=== PATIENT | male | born 1970 | race Caucasian/White ===

== ENCOUNTER 2023-10-31 08:53 | Outpatient (AMB) | payer OTHER, SELFPAY ==
--- NOTE | 2023-10-31 08:37 | AM.OFFWIN_ITS ---
Intake Vital Signs 10/31/23 08:55 Height 5 ft 10 in Weight 132 lb BMI 18.9 BP 110/76 Blood Pressure Location Lt brachial Position Sitting Pulse 112 H Pulse Source Pulse Oximeter Temp 97.8 F Temp Source Temporal Artery Scan Pulse Oximetry (%) 97 Oxygen Delivery Method Room Air Intake Visit Reasons: [employer] 2 month of random Vomit Intake Note: pt is here today for random vomiting started 2 months ago Patient Tobacco Use Status: Current everyday Tobacco user Allergies acetaminophen [From Percocet] Allergy (Mild, Verified 10/31/23 08:59) sick codeine Allergy (Mild, Verified 10/31/23 08:59) Vomiting oxycodone [From Percocet] Allergy (Mild, Verified 10/31/23 08:59) sick Do you need a note to return to daycare/school/sports/work: Yes HPI HPI Comments History of Present Illness Details 53 y/o male patient presents to walk in clinic with c/o diarrhea, Nausea, vomiting and gastritis for more than 6 months. Pt does not have a PCP at this time. Reports vomiting and diarrhea on/off for awhile. PFSH Social History Patient Tobacco Use Status: Current everyday Tobacco user Review of Systems Const All systems reviewed & are unremarkable except as noted in HPI and below Physical Exam Vital Signs: Last Vital Signs Temp 97.8 F 10/31/23 08:55 Pulse 112 H 10/31/23 08:55 BP 110/76 10/31/23 08:55 Pulse Ox 97 10/31/23 08:55 Oxygen Delivery Method Room Air 10/31/23 08:55 BMI result Body Mass Index 18.9 Const General: no acute distress Nutritional Appearance: underweight Orientation/consciousness: patient oriented x3 GI Inspection: Yes normal to inspection and No distended Palpation (GI): Soft to palpation and No hepatosplenomegaly present Auscultation: normal bowel sounds Neuro General: patient oriented x3, gait normal and moves all extremities Psych Speech and movement: Normal speech and movement present Assessment & Plan Assessment & Plan (1) Gastritis: Code(s): K29.70 - Gastritis, unspecified, without bleeding Qualifiers: Chronicity: acute Gastritis bleeding: without bleeding Gastritis type: other gastritis Qualified Code(s): K29.00 - Acute gastritis without bleeding Plan: - Pt to establish care with a new PCP - He might need GI referral - Possibly Stress related Medications: New metoclopramide HCl (Reglan) 10 mg PO Q6H PRN 60 tabs 2RF nausea and vomiting K29.00 - Acute gastritis without bleeding omeprazole 40 mg PO DAILY 30 caps 2RF K29.00 - Acute gastritis without bleeding Coding Level of Care Code New Pt Level 3 (20721) Diagnoses Other acute gastritis without hemorrhage K29.00 Chronicity: acute Gastritis bleeding: without bleeding Gastritis type: other gastritis Time Spent (min) 15
[2023-10-31 08:55] VITALS: BP 110/76; PULSE 112; TEMP 36.6; O2SAT 97; BMI 18.9
== END 2023-10-31 10:40 | disposition home or self-care (01) ==
PROVIDERS: Visit Provider Nurse Practitioner Family
DX: K29.00 Acute gastritis without bleeding (principal)
CPT/HCPCS: 99203